=== PATIENT | female | born 1985 | race Caucasian/White ===

== ENCOUNTER 2018-04-16 10:06 | Outpatient (CLI) | payer BC, OTHER ==
--- NOTE | 2018-04-17 07:27 | ULT ---
THYROID ULTRASOUND 04/16/18 Ultrasonography of the thyroid gland was performed for evaluation of perceived thyroid enlargement. The right lobe is normal in size and appearance. It measures 3.6 x 1.6 x 1.2 cm. Internally, there we re no findings of concern. The left lobe is enlarged measuring 5.6 x 3.5 x 3.6 cm. There is a large complex mass in the central portion of the lobe that has both cystic and solid components, also with perhaps septations. Some col or flow is seen in this mass. It measures 4.8 x 2.6 x 2.9 cm. No surrounding adenopathy was shown on any of the images. IMPRESSION: 4.8 cm complex mass in the central portion of the left thyroid lobe. A neoplasm should be presumed un til proven otherwise. Further work up as necessary. Code T POS: HOME
== END 2018-04-16 10:07 | disposition home or self-care (01) ==
LOC: BURULT 10:06
PROVIDERS: ATTEND Otolaryngology Plastic Surgery within the Head & Neck
DX: E01.0 Iodine-deficiency related diffuse (endemic) goiter (principal)
CPT/HCPCS: 76536